=== PATIENT | male | born 1970 | race African-American/Black ===

== ENCOUNTER 2022-05-04 11:41 | Emergency (ER) | payer BC ==
[2022-05-04] MEDS ORDERED: Adenosine 6 MG/2 ML SDV IVPUSH ONE ×2 (11:48→11:56)
[2022-05-04] MEDS ORDERED: Diltiazem 25 MG/5 ML SDV IVPUSH ONE (12:03)
[2022-05-04] MEDS: Sodium Chloride 0.9% 10 ML Syringe FLUSH PRN ×2 (12:07→14:21)
[2022-05-04] MEDS ORDERED: Diltiazem IR 60 MG Tab PO ONE (12:12)
[2022-05-04 12:50] LABS: ANION GAP 12.6 meq/L (7-15); CHLORIDE,CL 99 mmol/L (98-107); SODIUM,NA 136 mmol/L (136-145)
[2022-05-04 12:53] LABS: ESTIMATED GFR 59 mL/min (>=60)
[2022-05-04] MEDS ORDERED: Sodium Chloride 0.9% 1,000 ML IV ONE (14:06)
[2022-05-04] MEDS ORDERED: Magnesium Sulfate/Water 2 GM in Premix Bag 1 BAG IV ONE (14:07)
== END 2022-05-04 17:20 | disposition home or self-care (01) ==
LOC: LL.ED 11:41
DX: I47.1 Supraventricular tachycardia (principal); E86.0 Dehydration; E83.42 Hypomagnesemia; E11.9 Type 2 diabetes mellitus without complications; Z88.0 Allergy status to penicillin
CPT/HCPCS: 36415; 71045; 80053; 83735; 83880; 84484; 85025; 85379; 93005; 93010; 96361; 96365; 96366; 96375; 99284; 99285-25; A9270-GY; J0153; J3475; J3490; J7030